=== PATIENT | female | born 1980 | race Caucasian/White ===

== ENCOUNTER 2017-05-24 03:17 | Emergency (ER) | payer OTHER ==
[~2017-05-24] VITALS: Ht 180.3 cm; Wt 88.5 kg
[2017-05-24] MEDS ORDERED: LAMICTAL100 MG PO (03:32)
[2017-05-24] MEDS ORDERED: ZOFRAN ODT4 MG PO (04:39)
[2017-05-24] MEDS ORDERED: IBUPROFEN 600600 M1 PO (04:39)
[2017-05-24] MEDS ORDERED: OSELB75 PO (04:39)
== END 2017-05-24 04:52 | disposition home or self-care (01) ==
LOC: ER 03:17
DX: J11.1 Influenza due to unidentified influenza virus with other respiratory manifestations (principal)

== ENCOUNTER 2018-05-09 12:26 | Emergency (ER) | payer OTHER ==
[~2018-05-09] VITALS: Ht 180.3 cm; Wt 95.7 kg
[~2018-05-09 12:26] MED LIST: IBUPROFEN 600600 M1 PO; LAMICTAL100 MG PO; OSELB75 PO; ZOFRAN ODT4 MG PO
[2018-05-09] MEDS ORDERED: PRENATAL PO (12:41)
[2018-05-09 13:25] LABS: ABSOLUTE NEUTROPHILS 10.4 thou/uL (1.4-8.2); BASOPHILS 0.4 % (0.0-2.0); EOSINOPHILS 0.3 % (0.0-3.0); HEMATOCRIT 34.1 % (37.0-47.0); HEMOGLOBIN 11.8 gm/dL (12.0-15.0); LYMPHOCYTES 6.8 % (24.0-44.0); MCH 31.3 pg (26.0-34.0); MCHC 34.5 g/dL (28.0-37.0); MCV 90.6 fL (80.0-100.0); PLATELET COUNT 302 thou/uL (150-400); POLYS 89.5 % (36.0-66.0); RBC 3.77 mil/uL (4.20-5.00); RDW 13.8 % (10.5-14.5); WBC 11.7 thou/uL (4.0-11.0)
[2018-05-09 13:28] LABS: CALCIUM 8.8 mg/dL (8.5-10.1); CREATININE 0.6 mg/dL (0.6-1.0); POTASSIUM 3.5 mmol/L (3.5-5.1)
[2018-05-09 13:53] LABS: URINE CLARITY CLEAR; URINE COLOR YELLOW; URINE GLUCOSE-RANDOM* NEGATIVE (Negative); URINE PROTEIN (DIPSTICK) NEGATIVE (Negative); URINE SPECIFIC GRAVITY >= 1.030 (1.005-1.035)
[2018-05-09 13:54] LABS: URINE BILIRUBIN NEGATIVE (Negative); URINE BLOOD NEGATIVE (Negative); URINE KETONES 1+ (Negative); URINE LEUKOCYTES-REFLEX TRACE (Negative); URINE NITRITE-REFLEX NEGATIVE (Negative); URINE UROBILINOGEN 0.2 E.U./dl (0.2-1.0)
[2018-05-09 14:13] LABS: CASTS None Seen /LPF (None Seen); SQUAMOUS 4-10 Moderate /LPF (0-3)
[2018-05-09 14:14] LABS: AMORPHOUS URATES Moderate /LPF (None Seen); BACTERIA 1-9 Few /HPF (None Seen); URINE RBC None Seen /HPF (0-2); URINE WBC 0-5 Rare /HPF (0-5)
[2018-05-09 15:20] LABS: ALBUMIN 2.8 g/dL (3.4-5.0); DIRECT BILIRUBIN 0.2 mg/dL (<0.1-0.3); TOTAL BILIRUBIN 0.5 mg/dL (<0.1-1.0); TOTAL PROTEIN 6.5 g/dL (6.4-8.2)
[2018-05-09] MEDS ORDERED: KEFLEX500 M1 PO (16:03)
[2018-05-09 16:11] VITALS: BP 125/76
== END 2018-05-09 16:14 | disposition home or self-care (01) ==
LOC: ER 12:26
PROVIDERS: Student in an Organized Health Care Education/Training Program
DX: O26.892 Other specified pregnancy related conditions, second trimester (principal); R19.7 Diarrhea, unspecified; R10.13 Epigastric pain; F31.9 Bipolar disorder, unspecified; Z3A.21 21 weeks gestation of pregnancy